=== PATIENT | male | born 1935 | race Caucasian/White ===

== ENCOUNTER 2019-03-19 14:10 | Emergency (ER) | payer MEDICARE, BC ==
--- NOTE | 2019-03-19 14:28 | EDM.PDOC ---
ED HPI GENERAL MEDICAL PROBLEM - General Stated Complaint: FALL AT HOME Time Seen by Provider: 03/19/19 14:20 Source of Information: Reports: Patient, Family History Limitations: Reports: No Limitations - History of Present Illness INITIAL COMMENTS - FREE TEXT/NARRATIVE: This is a 83yo M here for a fall. He was digging a hole in the yard and tripped on the frame and landed on the left side with residual pain of the left ribs. He had some difficulty breathing for a few minutes and called his . He states he is doing well at this time and does have pain with deep breaths. He denies any dizziness or loss of consciousness. Onset: Sudden Duration: Constant Location: Reports: Chest, Abdomen Quality: Reports: Ache Severity: Moderate Improves with: Reports: None Worsens with: Reports: Movement Associated Symptoms: Reports: No Other Symptoms Left Chest Pain Score (Numeric/FACES): 5 - Related Data Allergies Allergy/AdvReac Type Severity Reaction Status Date / Time No Known Allergies Allergy Verified 03/19/19 14:31 Home Meds: Home Meds Oxybutynin 5 mg PO DAILY 03/19/19 [History] amLODIPine Besylate [Amlodipine Besylate] 10 mg PO DAILY 03/19/19 [History] atorvaSTATin [Lipitor] 10 mg PO BEDTIME 03/19/19 [History] ED ROS GENERAL - Review of Systems Review Of Systems: ROS reveals no pertinent complaints other than HPI. ED EXAM, GENERAL - Physical Exam Exam: See Below Exam Limited By: No Limitations General Appearance: Alert, WD/WN, Mild Distress Eye Exam: Bilateral Eye: EOMI, PERRL Ears: Normal External Exam Nose: Normal Inspection Throat/Mouth: Normal Inspection Head: Atraumatic, Normocephalic Neck: Normal Inspection Respiratory/Chest: Crackles (b/l bases) Cardiovascular: Normal Peripheral Pulses, Regular Rate, Rhythm Peripheral Pulses: 2+: Dorsalis Pedis (L), Dorsalis Pedis (R) GI/Abdominal: Normal Bowel Sounds, Soft, Non-Tender, Other (tender left chest wall and ribs) Back Exam: Normal Inspection Extremities: Normal Inspection Course - Vital Signs Last Recorded V/S: Last Vital Signs Temp 36.6 C 03/19/19 14:13 Pulse 65 03/19/19 14:13 Resp 18 03/19/19 14:13 BP 171/87 H 03/19/19 14:13 Pulse Ox 97 03/19/19 14:13 - Orders/Labs/Meds Orders: Active Orders 24 hr Category Date Time Status Ribs 2V w Chest Lt [CR] Stat Exams 03/19/19 14:20 Ordered Departure - Departure Time of Disposition: 15:15 Disposition: Home, Self-Care 01 Condition: Good Clinical Impression: Pulmonary vascular congestion Contusion of rib on left side Qualifiers: Encounter type: initial encounter Qualified Code(s): S20.212A - Contusion of left front wall of thorax, initial encounter - Discharge Information Instructions: Chest Contusion, Adult, [id number] Referrals: PCP,None [Primary Care Provider] - Forms: ED Department Discharge Additional Instructions: Discharge home. Rest this weekend. Tylenol or Ibuprofen for pain. Ultrasound next week at [facility]. Call or return to the clinic or ER if you have any questions or concerns. - Problem List & Annotations (1) Contusion of rib on left side SNOMED Code(s): 148510684 Code(s): S20.212A - CONTUSION OF LEFT FRONT WALL OF THORAX, INITIAL ENCOUNTER Status: Acute Current Visit: Yes Qualifiers: Encounter type: initial encounter Qualified Code(s): S20.212A - Contusion of left front wall of thorax, initial encounter (2) Pulmonary vascular congestion SNOMED Code(s): 693554632 Code(s): R09.89 - OTH SYMPTOMS AND SIGNS INVOLVING THE CIRC AND RESP SYSTEMS Status: Acute Current Visit: Yes - Problem List Review Problem List Initiated/Reviewed/Updated: Yes - My Orders Last 24 Hours: My Active Orders 03/19/19 14:20 Ribs 2V w Chest Lt [CR] Stat - Assessment/Plan Last 24 Hours: My Active Orders 03/19/19 14:20 Ribs 2V w Chest Lt [CR] Stat Plan: Discussed f/u ECHO, AAA screening and rtc as directed. F/u in ER or clinic if any further concerns. Counseled on pain management.
--- NOTE | 2019-03-20 19:36 | CR ---
CLINICAL DATA: Fall. PA AND LATERAL CHEST AND LEFT RIBS, 19 MARCH 2019: Comparison made to a prior exam dated November 20, 2011. The heart size is normal. The aortic arch is prominent, suggesting the possibility of aortic aneurysm. There is soft tissue fullness in the right paratracheal region, suggesting the possibility of a mass or adenopathy. There are scattered reticular opacities throughout both lungs. There are mild atelectatic changes in both lung bases. The lungs are otherwise clear. No pneumothorax. No pleural effusions. No rib abnormalities. No displaced rib fractures. There is degenerative disc disease throughout the thoracic spine. IMPRESSION: Abnormalities as discussed above. Chest CT should be considered. Job: [id number] MTDD
== END 2019-03-19 15:15 | disposition home or self-care (01) ==
LOC: LB.ED 14:10
DX: S20.212A Contusion of left front wall of thorax, initial encounter (principal); R09.89 Other specified symptoms and signs involving the circulatory and respiratory systems; Z79.899 Other long term (current) drug therapy; W01.0XXA Fall on same level from slipping, tripping and stumbling without subsequent striking against object, initial encounter; Y92.009 Unspecified place in unspecified non-institutional (private) residence as the place of occurrence of the external cause
CPT/HCPCS: 71101-LT; 99283-25

== ENCOUNTER 2019-12-17 19:07 | Emergency (ER) | payer MEDICARE, BC ==
--- NOTE | 2019-12-17 21:37 | ER ---
REASON FOR EMERGENCY ROOM VISIT: Injury to left forearm. HISTORY: This 84-year-old man came in with having suffered a crushing type injury to his left distal forearm just above the wrist. 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 He experienced some pain and swelling almost immediately and came to the emergency room to have this evaluated. He denies any numbness or tingling in his fingers. PAST MEDICAL HISTORY: Reviewed. Please see his electronic medical record. He does have a history of pulmonary vascular congestion and hypertension. MEDICATIONS: Reviewed, please see EMR. ALLERGIES: NONE TO MEDICATIONS. REVIEW OF SYSTEMS: Pertinent positives and negatives as listed above. PHYSICAL EXAMINATION: GENERAL: He is alert, pleasant, and in no acute distress. He rates his pain at a 2 to 3/10. He is afebrile. Heart rate is 58, blood pressure 174/86, O2 sats 97%. EXTREMITIES: Examination of his left upper extremity reveals normal distal capillary refill and grasp and normal intrinsic muscle function distally. Just proximal to the overlying the distal most radial at the wrist, he has a localized area of swelling approximately 4 cm or so in diameter. It appears to be soft tissue swelling with some early ecchymosis beginning to appear and a very superficial abrasion. His wrist passive range of motion is unremarkable. He has no bony crepitus. IMAGING: X-rays of his wrist were obtained (3 views). These show only soft tissue swelling without any acute bony abnormality. IMPRESSION: Soft tissue injury with contusion, left distal forearm. PLAN: I recommended he continue to ice it at least for the next day or so every 4 hours. He can take ibuprofen and Tylenol. He did state that he took Aleve before coming in and it almost completely eliminated his pain. All questions were answered. He was instructed that should this not be significantly improved by the middle of next week, he should probably come in and have it rechecked. He agrees with this plan. ANGIE /[id number]
--- NOTE | 2019-12-19 14:58 | CR ---
DATE OF SERVICE: 12/17/19 CLINICAL DATA: wrist fracture LEFT WRIST: There is soft tissue swelling dorsal to the wrist and adjacent to the distal radius on the frontal view. No acute fracture or dislocation. No lytic or blastic bone lesions. Mild osteoarthritic changes involving multiple joints. [id number] [facility]
== END 2019-12-17 20:50 | disposition home or self-care (01) ==
LOC: LB.ED 19:07
DX: S50.12XA Contusion of left forearm, initial encounter (principal); W23.0XXA Caught, crushed, jammed, or pinched between moving objects, initial encounter
CPT/HCPCS: 73110-LT; 99283-25

== ENCOUNTER 2020-01-09 16:02 | Emergency (ER) | payer MEDICARE, BC ==
[2020-01-09] MEDS ORDERED: Diphtheria/Tetanus Toxoids,Adult (Td) 0.5 ML SDV IM ONE (17:26)
--- NOTE | 2020-01-09 18:00 | EDM.PDOC ---
ED HPI GENERAL MEDICAL PROBLEM - General Chief Complaint: Upper Extremity Injury/Pain Stated Complaint: HAND INJURY/ Palm laceration Time Seen by Provider: 01/09/20 16:50 Source of Information: Reports: Patient History Limitations: Reports: No Limitations - History of Present Illness INITIAL COMMENTS - FREE TEXT/NARRATIVE: Patient suffered laceration to his left palm while working on a lawnmower. Cuf hand on blade of mower that was not running. Here for sutures. Onset: Today Onset Date: 01/09/20 Location: Reports: Upper Extremity, Left, Other (1.5 cm laceration of left palm ) - Related Data Allergies Allergy/AdvReac Type Severity Reaction Status Date / Time No Known Allergies Allergy Verified 12/17/19 20:06 Home Meds: Home Meds Oxybutynin 5 mg PO DAILY 03/19/19 [History] amLODIPine Besylate [Amlodipine Besylate] 10 mg PO DAILY 03/19/19 [History] atorvaSTATin [Lipitor] 10 mg PO BEDTIME 03/19/19 [History] Past Medical History Cardiovascular History: Reports: Hypertension Genitourinary History: Reports: BPH Social & Family History - Family History Family Medical History: Noncontributory - Caffeine Use Caffeine Use: Reports: Coffee, Soda Review of Systems - Review of Systems Review Of Systems: See Below Constitutional: Denies: Chills, Fever Respiratory: Denies: Shortness of Breath, Cough Cardiovascular: Denies: Chest Pain GI/Abdominal: Denies: Nausea, Vomiting ED EXAM, GENERAL - Physical Exam Exam: See Below Exam Limited By: No Limitations General Appearance: Alert, WD/WN, No Apparent Distress Nose: Normal Inspection Throat/Mouth: Normal Inspection Head: Atraumatic, Normocephalic Neck: Normal Inspection Respiratory/Chest: No Respiratory Distress Extremities: Other (1.5 cm lacceration thru dermis of left hand. Sensation and circulation intact distal to wound) ED TRAUMA PROCEDURES - Laceration/Wound Repair Left Hand Lac/Wound Length In cm: 1.5 Appearance: Subcutaneous Distal NVT: Neuro & Vascular Intact, No Tendon Injury Anesthetic Type: Local Local Anesthesia - Lidocaine (Xylocaine): 1% Plain Local Anesthetic Volume: 1cc Skin Prep: Providone-Iodine (Betadine) Saline Irrigation (cc's): 150 Exploration/Debridement/Repair: Wound Explored, Explored to Base, No Foreign Material Found Closed With: Sutures Suture Size: 4-0 # of Sutures: 2 Suture Type: Nylon, Interrupted, Simple Course - Orders/Labs/Meds Orders: Active Orders 24 hr Category Date Time Status Vaccines to be Administered [RC] PER UNIT ROUTINE Care 01/09/20 17:26 Active Meds: Medications Discontinued Medications Generic Name Dose Route Start Last Admin Trade Name Freq PRN Reason Stop Dose Admin Tetanus/Diphtheria Toxoids 0.5 ml 01/09/20 17:26 Tenivac IM 01/09/20 17:27 .ONCE ONE Departure - Departure Time of Disposition: 17:20 Disposition: Home, Self-Care 01 Clinical Impression: Laceration of hand, left Qualifiers: Encounter type: initial encounter Foreign body presence: without foreign body Qualified Code(s): S61.412A - Laceration without foreign body of left hand, initial encounter - Discharge Information *PRESCRIPTION DRUG MONITORING PROGRAM REVIEWED*: Not Applicable Instructions: Cellulitis, Adult Referrals: PCP,None [Primary Care Provider] - Forms: ED Department Discharge Additional Instructions: sutures out in 8-9 days. keep sutures dry and clean. watch for signs of infection. Return to ED for signs of infection. - My Orders Last 24 Hours: My Active Orders 01/09/20 17:26 Vaccines to be Administered [RC] PER UNIT ROUTINE - Assessment/Plan Last 24 Hours: My Active Orders 01/09/20 17:26 Vaccines to be Administered [RC] PER UNIT ROUTINE
== END 2020-01-09 18:26 | disposition home or self-care (01) ==
LOC: LB.ED 16:02
DX: S61.412A Laceration without foreign body of left hand, initial encounter (principal); I10 Essential (primary) hypertension; Z79.899 Other long term (current) drug therapy; W26.8XXA Contact with other sharp object(s), not elsewhere classified, initial encounter
CPT/HCPCS: 12001; 99282

== ENCOUNTER 2020-06-11 18:01 | Emergency (ER) | payer MEDICARE, BC ==
[2020-06-11] MEDS ORDERED: Azithromycin 250 MG Tab ONE (19:00)
--- NOTE | 2020-06-11 19:06 | EDM.PDOC ---
ED HPI GENERAL MEDICAL PROBLEM - General Chief Complaint: General Stated Complaint: COUGH, COVID EXPOSURE Time Seen by Provider: 06/11/20 18:45 Source of Information: Reports: Patient History Limitations: Reports: No Limitations - History of Present Illness INITIAL COMMENTS - FREE TEXT/NARRATIVE: pt presents to the ER with symptoms of cough, headache, congestion, fatigue starting today while living with several family members who have tested positive for covid19 7-10 days ago. pt has not taken temp at home but is without subjective fever, chills, SOB. - Related Data Allergies Allergy/AdvReac Type Severity Reaction Status Date / Time No Known Allergies Allergy Verified 12/17/19 20:06 Home Meds: Home Meds Oxybutynin 5 mg PO DAILY 03/19/19 [History] amLODIPine Besylate [Amlodipine Besylate] 10 mg PO DAILY 03/19/19 [History] atorvaSTATin [Lipitor] 10 mg PO BEDTIME 03/19/19 [History] predniSONE [Prednisone] 20 mg PO QAM #6 tablet 06/11/20 [Rx] Past Medical History Cardiovascular History: Reports: Hypertension Genitourinary History: Reports: BPH Social & Family History - Family History Family Medical History: No Pertinent Family History - Caffeine Use Caffeine Use: Reports: Coffee, Soda ED ROS GENERAL - Review of Systems Review Of Systems: Comprehensive ROS is negative, except as noted in HPI. ED EXAM, GENERAL - Physical Exam Exam: See Below Exam Limited By: No Limitations General Appearance: Alert, WD/WN, No Apparent Distress Eye Exam: Bilateral Eye: EOMI, PERRL Throat/Mouth: Normal Teeth, Normal Oropharynx, Normal Voice, No Airway Compromise Respiratory/Chest: No Respiratory Distress, Lungs Clear, Normal Breath Sounds, No Accessory Muscle Use Cardiovascular: Normal Peripheral Pulses, Regular Rate, Rhythm, No Edema Peripheral Pulses: 2+: Radial (L), Radial (R) Extremities: Normal Inspection, Normal Range of Motion, Non-Tender Neurological: Alert, Oriented, Normal Cognition, No Motor/Sensory Deficits Skin Exam: Warm, Dry, Intact Course - Orders/Labs/Meds Orders: Active Orders 24 hr Category Date Time Status CORONAVIRUS COVID-19 RAPID [MOLEC] Stat Lab 06/11/20 18:49 Ordered Departure - Departure Time of Disposition: 19:21 Disposition: Home, Self-Care 01 Condition: Good Clinical Impression: COVID-19 - Discharge Information *PRESCRIPTION DRUG MONITORING PROGRAM REVIEWED*: Not Applicable *COPY OF PRESCRIPTION DRUG MONITORING REPORT IN PATIENT YARELI: Not Applicable Instructions: COVID-19 Frequently Asked Questions Referrals: PCP,None [Primary Care Provider] - - Problem List & Annotations (1) COVID-19 SNOMED Code(s): 329896357 Code(s): U07.1 - COVID-19 Status: Acute Current Visit: Yes - Problem List Review Problem List Initiated/Reviewed/Updated: Yes - My Orders Last 24 Hours: My Active Orders 06/11/20 18:49 CORONAVIRUS COVID-19 RAPID [MOLEC] Stat - Assessment/Plan Last 24 Hours: My Active Orders 06/11/20 18:49 CORONAVIRUS COVID-19 RAPID [MOLEC] Stat Assessment:: assessment: covid 19 plan: zpak for pna secondary infection coverage prednisone 20mg QD x5 days albuterol INH qh4 prn self care at home, return to ER in cases of respiratory distress, severe SOB, hypoxia or any other concerns.
[2020-06-11] MEDS ORDERED: Albuterol 8 GM Inhaler INH SCH (19:15)
== END 2020-06-11 19:34 | disposition home or self-care (01) ==
LOC: LB.ED 18:01
DX: U07.1 COVID-19 (principal); I10 Essential (primary) hypertension; Z79.899 Other long term (current) drug therapy
CPT/HCPCS: 99285; A9270; U0002; 99283

== ENCOUNTER 2020-06-13 15:48 | Inpatient (IN) | payer MEDICARE, BC ==
--- NOTE | 2020-06-13 17:15 | CR ---
DATE OF SERVICE: 06/13/2020 CLINICAL DATA: Shortness of breath AP chest: Comparison is made to a prior exam dated 19 March 2019. The patient has taken a very poor inspiration. Considering projection and inspiration the heart size is stable. There are poorly defined infiltrates throughout the right mid and upper lung on the right and in the left lower lung suspicious for pneumonia. Consider viral pneumonia. No pneumothorax. No pleural effusions. MTDD
[2020-06-13] MEDS ORDERED: Enoxaparin 80 MG/0.8 ML Syringe SUBCUT ONE (17:38)
[2020-06-13] MEDS ORDERED: Acetaminophen 325 MG Tab PO PRN (20:36)
[2020-06-13] MEDS ORDERED: REMDESIVIR 200 MG in Sodium Chloride 0.9% 250 ML IV ONE (20:41)
[2020-06-13] MEDS ORDERED: Dexamethasone 4 MG/ML SDV IVPUSH ONE (20:45)
--- NOTE | 2020-06-13 20:52 | PCM.SN.2 ---
- Free Text/Narrative Note: Eric Solano Hospitalist CONSULTATION NOTE: [employer] not available, interaction facilitated by review with ED staff and phone call to patient/RN in room eHospitalist was contacted by Cole Brito with request of consultation for Julian Spicer: Reason for consult: Admit support, COVID-19 with hypoxia HPI: Mr. Julian Spicer is a pleasant 84-year-old gentleman who presented to [facility] 2 days after having an ambulatory evaluation, diagnosis of COVID-19. Since the time of diagnosis, has been maintained on 20 mg prednisone daily. Despite this, presents with progressive hypoxia, ED course notable for requirement of 10 L oxygen mask to stabilize oxygen sats. Vitals are otherwise stable. Laboratory evaluation notable for white count 12, hemoglobin 13.5, INR 1.2, D-dimer elevated, ABG notable for pH mildly elevated, PCO2 low, PO2 low, creatinine 1.3, baseline 1.0, glucose elevated at 219, troponin 0 0.16, BNP 7802 (no prior values to establish baseline) Home Medications: Noted to be quite healthy at baseline, only to home medications include amlodipine, oxybutynin Pertinent Medical History: Hypertension, irritable bladder Pertinent Social History: Former smoker, quite about 15 years ago. Exam (performed via interactive video with assistance of bedside nurse): WiFi not available in room, exam could not be performed. Recent lab: Pertinent findings as above EKG: Not applicable Xray: Chest x-ray notable for bilateral infiltrates consistent with COVID-19 pneumonia Assessment and Plan: 84-year-old gentleman with COVID-19, hypoxia -Relative to severe oxygen requirement, goals of therapy have been established, patient is DO NOT RESUSCITATE, will have options available to escalate to CPAP mask if he declines on current oxygen requirement. Follow routinely telemetry, oximetry, maintain COVID-19 precautions for staff -Relative to oxygen requirement, appropriate for COVID-19 specific therapies, initiate dexamethasone 6 mg daily, check LFTs, barring severe transaminitis, initiate Remdesivir 2 mg loading dose, followed by 100 mg daily. Relative to these therapies, recommend following glucose routinely, correct with sliding scale insulin, follow hepatal renal function routinely relative to Remdesivir -Leukocytosis at 12, rhonchi appreciated on exam. Possible patient has a pneumonia in addition to a viral insult, will place on empiric antibiotics for community-acquired pneumonia coverage -Home medications resumed -Therapies available for Covid related symptoms -Acute kidney injury, gentle fluid resuscitation overnight, hold if oxygen requirements increased -Additional diagnostic evaluations notable for elevated D-dimer, troponin, BNP. These abnormalities are noted, however would favor some gentle fluid resuscitation relative to elevated BUN relative to KRISH, fluid resuscitation to address COVID-19 related elevation of D-dimer, troponin. It is notable that patient received therapeutic enoxaparin in ED, which is reasonable granted acute hypoxic insult, elevated D-dimer, however suspect etiology of hypoxia is likely due to COVID-19 as opposed to PE. Poor candidate for CT angiogram to rule out PE, recommend follow-up on a.m. labs, with consideration of further therapeutic anticoagulation, or de-escalation to 40 mg enoxaparin daily. -Goals of therapy currently DO NOT RESUSCITATE/DO NOT INTUBATE. Suspect that oxygen mask therapy will be very well-tolerated, however sometimes patients struggle greatly with requirement of CPAP for hypoxia. Understand the family is reviewing goals of care, should further decline occur, may need to visit consideration for comfort management. Thank you for including Eric Munoz in the patients care. This service is available for further assistance as requested by your care team by calling [phone].
--- NOTE | 2020-06-13 20:54 | ADMIT ---
This is an 84-year-old male who was COVID positive for the last couple of days. He was initially worked up as an ER patient, with my shift started he was on the floor and there was debate whether he would be transferred out or not. The patient and his family have decided not to be transferred out unless we deem that absolutely necessary. Nursing staff and the previous provider tells me that he has been doing well on oxygen, but he does need the O2. Without O2, his sats dropped significantly. He is on 10 L per mask at this time and his O2 sats were 92%, respirations of 24, pulse 73. Upon entering the room, the patient is awake, he is smiling, he is in no obvious respiratory distress with oxygen on, per mask. The patient tells me that he talked with his family and wants to have 1 more conversation with them to make a final decision based on what we have to say. He did eat some of his supper until he became short of breath and then he put the mask back on. He states that the food tasted good other than coughing and some shortness of breath without oxygen, he feels fine. LABORATORY DATA: Include a D-dimer that is elevated at 2770. BNP 7802. Troponin 0.160. WBC 12.0, neutrophils 93.2. Chest x-ray is also obtained today showing possible viral pneumonia. The patient was given 1 dose of Lovenox subcu today. PHYSICAL EXAMINATION: RESPIRATORY: Lung exam reveals reduced air exchange throughout the lung burdick. The patient is able to take fairly deep breath without coughing. I can hear just minimal rhonchi, which is almost symmetrical throughout the lung burdick. SKIN: Warm and dry. ASSESSMENT AND PLAN: The patient will be admitted here overnight for inpatient therapy. I did get in on another conversation that the patient had with his daughter and other family members and I agree that at this point he is stable with oxygen on, so he will be monitored in-house instead of transferring out tonight. We will see how he does. If his condition gets worse, he will of course be transferred at as needed. At this point I did consult with the E-hospitalist, Dr. Mckenzie and a who assumed care as far as placing orders for this patient. He will start him on Decadron 6 mg p.o. The patient has been on prednisone 20 mg daily for the last couple of days. He will give the Decadron either p.o. or IV and it seems we do have remdesivir at this time, the patient will also be started on that per Dr. Mckenzie's orders. A CPAP machine will be readily available in case his respiratory status starts to deteriorate, and he will be watched closely overnight. CRS/MODL /[id number]
[2020-06-13] MEDS ORDERED: 50% Dextrose in Water 50 ML Syringe IVPUSH PRN (21:07)
[2020-06-13] MEDS ORDERED: Glucagon,Human Recombinant 1 MG Vial IM PRN (21:07)
[2020-06-13] MEDS ORDERED: cefTRIAXone 2 GM in Sodium Chloride 0.9% 100 ML IV ONE (21:08)
[2020-06-13] MEDS ORDERED: Benzocaine/Cetylpyridinium/Menthol Lozenge MUCMEM PRN (21:12)
[2020-06-13] MEDS ORDERED: guaiFENesin/Dextromethorphan 100-10 MG/5 ML Soln 10 ML Cup PO PRN (21:12)
[2020-06-13] MEDS ORDERED: Melatonin 3 MG Tab PO PRN (21:32)
[2020-06-13] MEDS ORDERED: Lactated Ringers 1,000 ML IV SCH (21:45)
[2020-06-13] MEDS ORDERED: Doxycycline 100 MG in Sodium Chloride 0.9% 100 ML IV SCH (22:00)
[2020-06-14] MEDS ORDERED: Insulin Lispro 100 Unit/ML 3 ML KwikPen SUBCUT SCH (07:00)
[2020-06-14] MEDS ORDERED: amLODIPine 10 MG Tab PO SCH (08:00)
[2020-06-14] MEDS ORDERED: Oxybutynin 5 MG Tab PO SCH (08:00)
[2020-06-14] MEDS ORDERED: Dexamethasone 4 MG Tab PO SCH (08:00)
[2020-06-14] MEDS ORDERED: REMDESIVIR 100 MG in Sodium Chloride 0.9% 100 ML IV SCH (10:00)
[2020-06-14] MEDS ORDERED: cefTRIAXone 2 GM in Sodium Chloride 0.9% 100 ML IV SCH (20:00)
== END 2020-06-14 10:45 | DRG 177 ==
LOC: LB.ED 15:48 → LB.MS 20:27
PROVIDERS: ADMIT Physician Assistant; ATTEND Physician Assistant
DX: U07.1 COVID-19 (principal); J12.89 Other viral pneumonia; N17.9 Acute kidney failure, unspecified; Z66 Do not resuscitate; R09.02 Hypoxemia; R77.8 Other specified abnormalities of plasma proteins; R74.01 Elevation of levels of liver transaminase levels; N40.0 Benign prostatic hyperplasia without lower urinary tract symptoms; I10 Essential (primary) hypertension; Z87.891 Personal history of nicotine dependence
CPT/HCPCS: 36415; 36600; 71045; 80048; 80076; 82803; 83880; 84484; 85025; 85379; 85610; 93005; 99285-25; A9270-GY; J1650; J1815